=== PATIENT | male | born 1975 | race Caucasian/White ===

== ENCOUNTER 2023-06-27 17:11 | Emergency (ER) | payer OTHER ==
[2023-06-27 17:22] VITALS: BP 101/70; PULSE 90; RESP 24; TEMP 99.3
--- NOTE | 2023-06-27 18:13 | ED ---
ENT HPI - General Source: patient, RN notes reviewed Mode of arrival: ambulatory Limitations: no limitations <Josefina Stevenson - Last Filed: 06/27/23 18:12> <Elmo Edwards - Last Filed: 06/27/23 20:16> - General Chief complaint: Recheck/Abnormal Lab/Rx Stated complaint: Cough up Blood thru Track Time Seen by Provider: 06/27/23 18:10 - History of Present Illness Initial comments: This is a 39-year-old male who presents to the emergency department for hemoptysis. 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 States that today he started to cough up blood through his trach. (Josefina Stevenson) This is a 47-year-old male who presents emergency Department with some bleeding out of his tracheostomy tube patient states he just had it placed 8 or 9 days ago. Patient states she's having no pain is having no chest pain no difficulty breathing or shortness of breath fever chills and he states that the bleeding was not profuse but when he coughs a little bit it does come up in the sputum. Denies any other symptoms at this time (Elmo Edwards) - Related Data Allergies Allergy/AdvReac Type Severity Reaction Status Date / Time No Known Allergies Allergy Verified 06/27/23 17:19 Review of Systems ROS Other: All systems not noted in ROS Statement are negative. <Josefina Stevenson - Last Filed: 06/27/23 18:12> ROS Other: All systems not noted in ROS Statement are negative. <Elmo Edwards - Last Filed: 06/27/23 20:16> ROS Statement: Those systems with pertinent positive or pertinent negative responses have been documented in the HPI. Past Medical History Additional Past Medical History / Comment(s): Tumot in his throat. History of Any Multi-Drug Resistant Organisms: None Reported Additional Past Surgical History / Comment(s): Trach Past Psychological History: No Psychological Hx Reported Smoking Status: Former smoker Past Alcohol Use History: None Reported Past Drug Use History: None Reported <Josefina Stevenson - Last Filed: 06/27/23 18:12> General Exam Limitations: no limitations <Josefina Stevenson - Last Filed: 06/27/23 18:12> <Elmo Edwards - Last Filed: 06/27/23 20:16> - General Exam Comments Initial Comments: Visual Physical Exam Vital signs reviewed General: Well-appearing, nontoxic, no acute distress. Head: Normocephalic, atraumatic Eyes: PERRLA, EOMI ENT: Airway patent Chest: Nonlabored breathing Skin: No visual rash, normal skin tone Neuro: Alert and oriented 3 Musculoskeletal: No gross abnormalities I performed the QuickNote portion of this chart. Signed Josefina Stevenson PA-C. (Josefina Stevenson) GENERAL: Patient is well-developed and well-nourished. Patient is nontoxic and well- hydrated and is in no acute distress. ENT: Neck is soft and supple. No significant lymphadenopathy is noted. Oropharynx is clear. Moist mucous membranes. Patient's tracheostomy tube does not appear to be irritating the skin is NO abrasion. Blood does appear to be coming from the tracheostomy tube itself EYES: The sclera were anicteric and conjunctiva were pink and moist. Extraocular movements were intact and pupils were equal round and reactive to light. Eyelids were unremarkable. PULMONARY: Unlabored respirations. Good breath sounds bilaterally. No audible rales rhonchi or wheezing was noted. CARDIOVASCULAR: There is a regular rate and rhythm without any murmurs gallops or rubs. SKIN: Skin is clear with no lesions or rashes and otherwise unremarkable. NEUROLOGIC: Patient is alert and oriented x3. Cranial nerves II through XII are grossly intact. Motor and sensory are also intact. Normal speech, volume and content. Symmetrical smile. MUSCULOSKELETAL: Normal extremities with adequate strength and full range of motion. PSYCHIATRIC: Normal psychiatric evaluation. (Elmo Edwards) Course Vital Signs 06/27/23 17:17 Temperature 99.3 F Pulse Rate 90 Respiratory 24 Rate Blood Pressure 101/70 O2 Sat by Pulse 96 Oximetry Medical Decision Making <Elmo Edwards - Last Filed: 06/27/23 20:16> - Medical Decision Making Was pt. sent in by a medical professional or institution (ITZEL Emanuel, SHIRT HEMMER, urgent care, hospital, or alf...) When possible be specific @ -No Did you speak to anyone other than the patient for history (EMS, parent, family, police, friend...)? What history was obtained from this source @ -No Did you review nursing and triage notes (agree or disagree)? Why? @ -I reviewed and agree with nursing and triage notes Were old charts reviewed (outside hosp., previous admission, EMS record, old EKG, old radiological studies, urgent care reports/EKG's, alf records)? Report findings @ -I reviewed prior charts from prior lab work on this patient Differential Diagnosis (chest pain, altered mental status, abdominal pain women, abdominal pain men, vaginal bleeding, weakness, fever, dyspnea, syncope, headache, dizziness, GI bleed, back pain, seizure, CVA, palpatations, mental health, musculoskeletal)? @ -Pneumonia, tumor, tracheostomy irritation EKG interpreted by me (3pts min.). @ -As above X-rays interpreted by me (1pt min.). @ -X-ray showed no acute abnormality CT interpreted by me (1pt min.). @ -None done U/S interpreted by me (1pt. min.). @ -None done What testing was considered but not performed or refused? (CT, X-rays, U/S, labs)? Why? @ -None What meds were considered but not given or refused? Why? @ -None Did you discuss the management of the patient with other professionals (professionals i.e. , PA, SHIRT HEMMER, lab, RT, psych nurse, psychotherapist social worker, humid system operator, teacher, personnel training officer, trimming caser)? Give summary @ -No Was smoking cessation discussed for >3mins.? @ -No Was critical care preformed (if so, how long)? @ -No Were there social determinants of health that impacted care today? How? (Homelessness, low income, unemployed, alcoholism, drug addiction, transportation, low edu. Level, literacy, decrease access to med. care, half-way, rehab)? @ -No Was there de-escalation of care discussed even if they declined (Discuss DNR or withdrawal of care, Hospice)? DNR status @ -No What co-morbidities impacted this encounter? (DM, HTN, Smoking, COPD, CAD, Cancer, CVA, ARF, Chemo, Hep., AIDS, mental health diagnosis, sleep apnea, morbid obesity)? @ -None Was patient admitted / discharged? Hospital course, mention meds given and route, prescriptions, significant lab abnormalities, going to OR and other per tinent info. @ -I told the patient I would try to contact his surgeon surgeon called back and agreed that some bleeding was expected as long as it wasn't heavy or he was having difficulty breathing he could follow-up as an outpatient. Undiagnosed new problem with uncertain prognosis? @ -No Drug Therapy requiring intensive monitoring for toxicity (Heparin, Nitro, Insulin, Cardizem)? @ -No Were any procedures done? @ -No Diagnosis/symptom? @ -Tracheostomy bleeding Acute, or Chronic, or Acute on Chronic? @ -Acute Uncomplicated (without systemic symptoms) or Complicated (systemic symptoms)? @ -Uncomplicated Side effects of treatment? @ -No Exacerbation, Progression, or Severe Exacerbation? @ -No Poses a threat to life or bodily function? How? (Chest pain, [place], [place], pneumonia, PE, COPD, DKA, ARF, appy, cholecystitis, CVA, Diverticulitis, Homicidal, [place] icidal, threat to staff... and all critical care pts) @ -No (Elmo Edwards) Disposition <Josefina Stevenson - Last Filed: 06/27/23 18:12> Is patient prescribed a controlled substance at d/c from ED?: No Time of Disposition: 20:13 <Elmo Edwards - Last Filed: 06/27/23 20:16> Clinical Impression: Tracheostomy hemorrhage Disposition: HOME SELF-CARE Condition: Good Additional Instructions: Patient should return to the emergency department as any heavy bleeding difficulty breathing or shortness of breath Referrals: Sarah Duarte, PAC [Family Provider] - 1-2 days
--- NOTE | 2023-06-27 19:21 | XR ---
EXAMINATION TYPE: XR chest 2V DATE OF EXAM: 06/27/2023 7:17 PM COMPARISON: None TECHNIQUE: XR chest 2V Frontal and lateral views of the chest. CLINICAL INDICATION:Male, 47 years old with history of Difficulty breathing ; FINDINGS: Lungs/Pleura: There is no evidence of pleural effusion, focal consolidation, or pneumothorax. Pulmonary vascularity: Unremarkable. Heart/mediastinum: Cardiomediastinal silhouette is unremarkable. Musculoskeletal: No acute osseous pathology. Other findings: None Lines/Tubes: Tracheostomy cannula over the trachea. IMPRESSION: No acute cardiopulmonary disease/process.
== END 2023-06-27 20:21 | disposition home or self-care (01) ==
LOC: SUPCPDRO 17:11 → EC 17:11
DX: J95.01 Hemorrhage from tracheostomy stoma (principal); Z87.891 Personal history of nicotine dependence
CPT/HCPCS: 71046; 99285

== ENCOUNTER → 2023-06-29 | Outpatient (CLI) | payer OTHER ==
--- NOTE | 2023-07-02 21:04 | PE ---
EXAMINATION TYPE: PET CT fusion skull to thigh DATE OF EXAM: 06/29/2023 COMPARISON: No pertinent prior CT Prior PET/CT: No prior PET/CT at this location HISTORY: Malignant neoplasm of the glottis TECHNIQUE: Following the intravenous administration of 10.68 mCi of F-18 FDG, whole body images are performed from the skull base to the midthigh. Images are reviewed on the computer in the coronal, a xial, and sagittal planes. Reconstructed rotating images are created on independent workstation and reviewed on the computer. A localization and attenuation correction CT is performed in conjunction with the PET scan. Dedicated head and neck imaging was performed. DLP: 634.58 mGycm SCAN: Initial Blood glucose: 104 mg/dL Average Mediastinum SUV: 1.56 Average Liver SUV: 2.08 FINDINGS: HEAD AND NECK: There is intense uptake in the region of the vocal cords with an SUV value of 12.29. There is a left lower cervical lymph node posterior to the sternocleidomastoid, image 63, SUV 3.55. S uspicious uptake within lymphadenopathy is not otherwise apparent within the neck. There is some activity along the tracheostomy tract which can be related to recent surgery. THORAX: No intrathoracic abnormality. ABDOMEN: No abnormal uptake PELVIS: No abnormal uptake OSSEOUS STRUCTURES: There is some uptake within the left lateral rib, image 116, SUV 2.88. Metastatic lesion or posttraumatic change could be considered. LOCALIZATION CT: Soft tissue thickening is through the vocal cord level. Suspicious lymphadenopathy i s not identified. COMPARISON: None IMPRESSION: 1. Abnormal uptake at the vocal cord level compatible with the patient's neoplasm. 2. Uptake within the small lymph node suspicious for metastatic lesion within the left lower cervical chain discussed above. 3. Uptake within a left rib could be related to posttraumatic change. Solitary osseous metastasis is not excluded.
== END | disposition home or self-care (01) ==
LOC: RADPETMAIN 11:42
PROVIDERS: ATTEND Radiology Radiation Oncology
DX: C32.0 Malignant neoplasm of glottis (principal); J38.3 Other diseases of vocal cords; R93.7 Abnormal findings on diagnostic imaging of other parts of musculoskeletal system
CPT/HCPCS: 78815; A9552

== ENCOUNTER 2023-07-05 00:24 | Emergency (ER) | payer OTHER ==
[2023-07-05] MEDS ORDERED: LORazepam 2 MG/ML INJ IV STA (00:40)
[2023-07-05] MEDS ORDERED: MORPHINE SULFATE 2 MG/ML SYRINGE IVP STA (00:40)
[2023-07-05 00:48] VITALS: TEMP 97.6
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
[2023-07-05 01:41] VITALS: BP 116/79; PULSE 92; RESP 18
== END 2023-07-05 01:32 | disposition home or self-care (01) ==
LOC: EC 00:24
DX: J95.09 Other tracheostomy complication (principal); J96.91 Respiratory failure, unspecified with hypoxia; R00.0 Tachycardia, unspecified; Z87.891 Personal history of nicotine dependence
CPT/HCPCS: 99291; 96374; J2060

== ENCOUNTER 2023-07-05 18:59 | Emergency (ER) | payer OTHER ==
--- NOTE | 2023-07-05 19:17 | ED ---
General Adult HPI - General Chief complaint: Shortness of Breath Stated complaint: sob Time Seen by Provider: 07/05/23 19:04 Source: patient, family, RN notes reviewed, old records reviewed Mode of arrival: ambulatory Limitations: no limitations - History of Present Illness Initial comments: 47-year-old male history of recent diagnosis of head and neck cancer who received a tracheostomy 2 weeks ago resents with respiratory distress. Patient had apparently been seen in the emergency department earlier today and had his trach changed. He was seen by his oncologist earlier today and suddenly developed a respiratory distress. He reports very minimal bleeding from around the tracheostomy. No cough or cold symptoms, no preceding symptoms. He had a similar episode last night in which she was seen in the emergency department. - Related Data Allergies Allergy/AdvReac Type Severity Reaction Status Date / Time No Known Allergies Allergy Verified 07/05/23 19:10 Review of Systems ROS Statement: Those systems with pertinent positive or pertinent negative responses have been documented in the HPI. ROS Other: All systems not noted in ROS Statement are negative. Past Medical History Additional Past Medical History / Comment(s): Tumot in his throat. History of Any Multi-Drug Resistant Organisms: None Reported Additional Past Surgical History / Comment(s): Trach Past Psychological History: No Psychological Hx Reported Smoking Status: Former smoker Past Alcohol Use History: None Reported Past Drug Use History: None Reported General Exam General appearance: alert, in distress Head exam: Present: atraumatic, normocephalic Eye exam: Present: normal appearance, PERRL Respiratory exam: Present: respiratory distress, stridor Cardiovascular Exam: Present: regular rate, tachycardia GI/Abdominal exam: Present: soft. Absent: distended, tenderness, guarding Extremities exam: Present: normal inspection, normal capillary refill Neurological exam: Present: alert Psychiatric exam: Present: anxious Skin exam: Present: warm, dry, intact Course Vital Signs 07/05/23 07/05/23 19:06 19:30 Temperature 98.9 F Pulse Rate 126 H 118 H Respiratory 26 H 28 H Rate Blood Pressure 146/99 O2 Sat by Pulse 91 L 100 Oximetry Medical Decision Making - Medical Decision Making Was pt. sent in by a medical professional or institution (, PA, [facility], urgent care, hospital, or group home...) When possible be specific @ -No Did you speak to anyone other than the patient for history (EMS, parent, family, police, friend...)? What history was obtained from this source @ -Patient's family members at bedside Did you review nursing and triage notes (agree or disagree)? Why? @ -I reviewed and agree with nursing and triage notes Were old charts reviewed (outside hosp., previous admission, EMS record, old EKG, old radiological studies, urgent care reports/EKG's, group home records)? Report findings @ -No old charts were reviewed Differential Diagnosis (chest pain, altered mental status, abdominal pain women, abdominal pain men, vaginal bleeding, weakness, fever, dyspnea, syncope, headache, dizziness, GI bleed, back pain, seizure, CVA, palpatations, mental health, musculoskeletal)? @ -Occluded tracheostomy cannula, Differential Dyspnea: Coronary syndrome, arrhythmia, tamponade, asthma, COPD, pulmonary embolism, pneumonia, pneumothorax, pulmonary effusion, anaphylaxis, diabetic ketoacidosis, flailed chest, pulmonary contusion, diaphragmatic rupture, anemia, neuro muscular, this is not meant to be an all-inclusive list. EKG interpreted by me (3pts min.). @ -As above X-rays interpreted by me (1pt min.). @ -None done CT interpreted by me (1pt min.). @ -None done U/S interpreted by me (1pt. min.). @ -None done What testing was considered but not performed or refused? (CT, X-rays, U/S, labs)? Why? @ -None What meds were considered but not given or refused? Why? @ -None Did you discuss the management of the patient with other professionals (professionals i.e. , PA, [facility], lab, RT, psych nurse, social services assistant, community artist, teacher, compliance officer, ed case manager)? Give summary @ -No Was smoking cessation discussed for >3mins.? @ -No Was critical care preformed (if so, how long)? @ -[Yes, 35 minutes. Were there social determinants of health that impacted care today? How? (Homelessness, low income, unemployed, alcoholism, drug addiction, transportation, low edu. Level, literacy, decrease access to med. care, intermediate, rehab)? @ -No Was there de-escalation of care discussed even if they declined (Discuss DNR or withdrawal of care, Hospice)? DNR status @ -No What co-morbidities impacted this encounter? (DM, HTN, Smoking, COPD, CAD, Cancer, CVA, ARF, Chemo, Hep., AIDS, mental health diagnosis, sleep apnea, morbid obesity)? @ Head and neck cancer Was patient admitted / discharged? Hospital course, mention meds given and route, prescriptions, significant lab abnormalities, going to OR and other pertinent info. @ -Patient presents in respiratory distress, stridorous, hypoxic tachycardic. Patient's has suspicion of occluded tracheostomy cannula. I did personally removed in her cannula which had a mucous plug and dried blood severely limiting the airway. The patient did not know that the cannula was removable a could be cleaned. Upon removal the patient's respiratory distress is completely eliminated. He is no longer hypoxic, tachypneic or tachycardic. The cannula is cleaned and replaced. The patient is instructed on cannula removal, cleaning, and given additional supplies for this tracheostomy. There is no active bleeding. Patient's vital signs normalized after treatment. Stable for discharge. Undiagnosed new problem with uncertain prognosis? @ -No Drug Therapy requiring intensive monitoring for toxicity (Heparin, Nitro, Insulin, Cardizem)? @ -No Were any procedures done? @ -No Diagnosis/symptom? @ Occluded tracheostomy cannula Acute, or Chronic, or Acute on Chronic? @ -[Acute Uncomplicated (without systemic symptoms) or Complicated (systemic symptoms)? @ -[Complicated Side effects of treatment? @ -No Exacerbation, Progression, or Severe Exacerbation? @ -No Poses a threat to life or bodily function? How? (Chest pain, [place], [place], pneumonia, PE, COPD, DKA, ARF, appy, cholecystitis, CVA, Diverticulitis, Homicidal, Suicidal, threat to staff... and all critical care pts) @ -[Yes, respiratory failure secondary to airway obstruction Critical Care Time Critical Care Time: Yes Total Critical Care Time: 35 Disposition Clinical Impression: Complication of tracheostomy tube Disposition: HOME SELF-CARE Condition: Fair Instructions (If sedation given, give patient instructions): Tracheostomy Care (ED) Is patient prescribed a controlled substance at d/c from ED?: No Referrals: Vance Fine MD [Primary Care Provider] - 1-2 days Time of Disposition: 19:48
[2023-07-05 19:18] VITALS: TEMP 98.9
[2023-07-05 20:19] VITALS: BP 140/80; PULSE 85; RESP 22
== END 2023-07-05 20:10 | disposition home or self-care (01) ==
LOC: EC 18:59
DX: J95.00 Unspecified tracheostomy complication (principal); Z87.891 Personal history of nicotine dependence
CPT/HCPCS: 99285

== ENCOUNTER → 2023-12-08 | Outpatient (CLI) | payer OTHER ==
--- NOTE | 2023-12-12 14:06 | PE ---
EXAMINATION TYPE: PET CT fusion skull to thigh DATE OF EXAM: 12/08/2023 COMPARISON: No recent pertinent CT at this location Prior PET/CT: 06/29/2023 HISTORY: Malignant neoplasm of glottis TECHNIQUE: Following the intravenous administration of 11.8 mCi of F-18 FDG, whole body images are p erformed from the skull base to the midthigh. Images are reviewed on the computer in the coronal, ax ial, and sagittal planes. Reconstructed rotating images are created on independent workstation and r eviewed on the computer. A localization and attenuation correction CT is performed in conjunction w ith the PET scan. DLP: 853.76 mGycm SCAN: Subsequent Blood glucose: 96 mg/dL Average Mediastinum SUV: 1.97 Average Liver SUV: 2.18 FINDINGS: HEAD AND NECK: There is some uptake within the posterior left maxilla which appears to be a tooth devon t. Periodontal disease should be considered. Abnormal uptake is in the larynx. Vocal cord level is closed. There is some soft tissue prominence in the prevertebral space. SUV value is 7.28, example image 63. This extends inferiorly. Findings are c ompatible with neoplasm. There is a punctate hyperintensity adjacent to the trachea to the right of midline below the level of the thyroid. This is elevated SUV. Image 78, SUV 7.18. Metastatic lesion should be considered. Coupl e of punctate hyperintensities are adjacent to the trachea at the level of the thoracic inlet, image 81. These have elevated SUV levels between 7 and 9. NECK: Radiotracer distribution within the neck appears stable from the dedicated head and neck image s. Intensity adjacent to the trachea at the thoracic inlet may be diminished. THORAX: No suspicious uptake. Some vague uptake is within soft tissue density posterior medial left l tod can be related atelectasis or infection. Follow-up however is recommended. ABDOMEN: No suspicious uptake PELVIS: No suspicious uptake OSSEOUS STRUCTURES: No abnormal uptake LOCALIZATION CT: Vocal cord level is closed during the imaging. Tracheostomy tube is present. COMPARISON: Intensity at the larynx is diminished over the interval. Previous left neck uptake airline hostess ior to the left sternocleidomastoid muscle is not identified on the current exam. Uptake adjacent to the proximal trachea may be new from comparison. IMPRESSION: 1. Diminishing uptake within the level of the larynx. 2. Previous suspected left neck lymph node not identified on the current examination. 3. there may be new uptake adjacent to the proximal thoracic trachea. This is nonspecific. Inflammati on from the adjacent endotracheal tube or metastasis could be considered. This is less apparent on th e whole body imaging. 4. Suspected inflammatory change from pneumonia or atelectasis posterior left lung. Follow-up is sari mmended.
== END | disposition home or self-care (01) ==
LOC: RADPETMAIN 09:25
PROVIDERS: ATTEND Radiology Radiation Oncology
DX: C32.0 Malignant neoplasm of glottis (principal)
CPT/HCPCS: 78815; A9552

== ENCOUNTER → 2024-03-28 | Outpatient (CLI) | payer OTHER ==
--- NOTE | 2024-03-28 15:30 | PE ---
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 Images are reviewed on the computer in the coronal, axial, and sagittal planes. Reconstructed rotating images are created on independent workstation and reviewed on the computer. A non-contrast CT is performed in conjunction with the PET scan. Glucose level 126 mg/dL CT DLP: 869 mGycm, Automated exposure control for dose reduction was used. COMPARISON: CT None, PET/CT 12/08/2023, 06/29/2023, MRI: None FINDINGS: Mediastinal SUV mean is 3.3. Hepatic parenchyma SUV mean is 3.6. SKULL BASE AND NECK: Postsurgical changes from laryngectomy with radiotracer uptake identified within the left lateral wal l hypopharynx with a maximum SUV of 6.4 (series 1201, image 52 through 55). Increased size of 1.8 cm nodule identified within the right supra clavicular region just lateral to t he tracheostomy tube with a maximum SUV of 8.7, previously 6.4 (series 1201, image 66 through 71. Additional 3.6 cm FDG avid soft tissue region just posterior and left lateral to the tracheostomy can nula at the left supraclavicular region with a maximum SUV of 12.2 (series 1201, image 61 through 72. CHEST, MEDIASTINUM, AND HILAR REGION: Similar low-level uptake within focal consolidation within the dependent portion of the medial left lower lobe at site of atelectasis/infection. Demonstrates a maxi mum SUV of 4.7 just above background. ABDOMEN AND PELVIS: No suspicious radiotracer activity. MUSCULOSKELETAL STRUCTURES: No suspicious radiotracer activity. OTHER CT: Mild mucosal thickening in the inferior bilateral maxillary sinuses and right sphenoid sinu s. Bilateral carotid bulb calcifications. Postsurgical changes from laryngectomy with tracheostomy ca nnula in place. Incomplete fusion of the posterior arch of C1. Minimal mucosal thickening in the infe rior right mastoid air cells. Mild coronary arterial calcifications. Bilateral gynecomastia. Remote h ealed left rib fractures. Degenerative changes of the visualized spine. Mild atherosclerotic calcific ation of the aorta and its branches. IMPRESSION: Postsurgical changes from laryngectomy with new and/or increased FDG avid soft tissue/nodularity surr ounding the tracheostomy cannula in the supraclavicular region. Additional focal FDG activity identif ied within the left lateral aspect of the hypopharynx. Findings are concerning for residual/recurrent neoplasm. Direct visualization is recommended.
== END | disposition home or self-care (01) ==
LOC: RADPETMAIN 12:00
PROVIDERS: ATTEND Otolaryngology
DX: C34.80 Malignant neoplasm of overlapping sites of unspecified bronchus and lung (principal); Z98.890 Other specified postprocedural states
CPT/HCPCS: 78815; A9552